=== PATIENT | female | born 1945 | race Caucasian/White ===

== ENCOUNTER 2019-10-10 08:00 | Outpatient (CLI) | payer MEDICARE, BC ==
--- NOTE | 2019-10-10 10:39 | BD ---
DEXA BONE DENSITY STUDY: Date: 10/10/19 HISTORY: Postmenopausal. FINDINGS: Lumbar Spine: BMD (g/cm2) L1 1.022 T-Score: +0.3 L2 1.048 T-Score: +0.2 L3 0.946 T-Score: -1.3 L4 0.900 T-Score: -1.5 Total 0.974 T-Score: -0.7 Left Femoral Neck: 0.723 T-Score: -1.1 Total Femur: 0.891 T-Score: -0.4 IMPRESSION: Osteopenia of the left femoral neck. Normal bone mineral density of the lumbar spine. 2. 10 year fracture risk for a major osteoporotic fracture is 14% and for a hip fracture is 5.2%. Th donna fracture probabilities are calculated for an untreated patient. POS: TPC
== END 2019-10-10 08:01 | disposition home or self-care (01) ==
LOC: BICMAMMO 08:00
PROVIDERS: ATTEND Family Medicine
DX: Z13.820 Encounter for screening for osteoporosis (principal); Z78.0 Asymptomatic menopausal state; M85.852 Other specified disorders of bone density and structure, left thigh
CPT/HCPCS: 77080

== ENCOUNTER 2020-01-06 05:17 | Outpatient (CLI) | payer MEDICARE, BC ==
[2020-01-06 10:37] LABS: INR-International Normal Ratio 1.4; PTT 37.9 SEC (22.9-36.1); Prothrombin Time 17.5 SEC (12.0-14.7)
[2020-01-06 10:44] LABS: Hemoglobin 15.2 g/dL (12.0-16.0); Mean Corpuscular HGB CONC 32.9 g/dL (32.0-36.0); Mean Corpuscular Volume 94.3 fL (78.0-98.0); Mean Platelet Volume 8.6 fL (7.4-10.4); Platelet Count 162 thou/uL (130-400); RBC Distribution Width 11.4 % (11.5-14.5); White Blood Cell (WBC) Count 9.5 thou/uL (4.8-10.8)
[2020-01-06 10:56] LABS: Anion Gap 12 mmol/L (10-20); BUN (Urea Nitrogen) 16 mg/dL (9.8-20.1); Calc. Creatinine Clearance 0 mL/min (70-130); Calcium 9.2 mg/dL (7.8-10.44); Carbon Dioxide 28 mmol/L (23-31); Chloride 104 mmol/L (98-107); Estimated GFR-MDRD 69; Glucose 102 mg/dL (83-110); Potassium 4.6 mmol/L (3.5-5.1); Sodium 139 mmol/L (136-145)
== END 2020-01-06 05:18 | disposition home or self-care (01) ==
LOC: LABBT 05:17
PROVIDERS: ATTEND Internal Medicine Cardiovascular Disease
DX: Z01.818 Encounter for other preprocedural examination (principal); I48.91 Unspecified atrial fibrillation
CPT/HCPCS: 80048; 85027; 85610; 85730; 93005; 93010

== ENCOUNTER 2020-01-09 08:44 | Observation (INO) | payer MEDICARE, BC ==
[2020-01-06 09:23] VITALS: BMI 32.4
[2020-01-09] MEDS ORDERED: Isoproterenol 0.2 MG/1 ML AMP ONE (08:59)
[2020-01-09] MEDS ORDERED: Heparin 10,000 UNITS/1 ML VIAL ONE ×2 (08:59→12:52)
[2020-01-09] MEDS ORDERED: Heparin (Artline) 1,500 ML ONE (08:59)
[2020-01-09] MEDS ORDERED: Heparin 25,000 units/D5W 500 ML ONE (09:26)
[2020-01-09] MEDS ORDERED: Lidocaine 1% (PF) 30 ML VIAL ONE (09:26)
[2020-01-09] MEDS ORDERED: Propofol 500 MG/50 ML VIAL ONE (09:34)
[2020-01-09] MEDS ORDERED: Phenylephrine HCL 10 MG/ML VIAL ONE (11:03)
[2020-01-09] MEDS ORDERED: Protamine Sulfate 50 MG/5 ML VIAL ONE (13:14)
[2020-01-09] MEDS ORDERED: Naproxen 500 MG TAB PO PRN (14:43)
[2020-01-09] MEDS ORDERED: Acetaminophen/Codeine 30-300mg Tablet PO PRN ×2 (14:45)
[2020-01-09] MEDS ORDERED: Potassium Chloride 20 MEQ TAB PO PRN (14:46)
[2020-01-09] MEDS ORDERED: Furosemide 40 MG TAB PO PRN (14:46)
[2020-01-09] MEDS ORDERED: Glycopyrrolate 0.2 MG/ML 5 ML SYRINGE ONE (14:53)
[2020-01-09] MEDS ORDERED: PHENYLEPHRINE-NS 100 MCG/ML 10 ML SYRINGE ONE (14:53)
[2020-01-09] MEDS ORDERED: PROPOFOL 200 MG/20 ML VIAL ONE (14:53)
[2020-01-09] MEDS ORDERED: Lidocaine 1% PF 5 ML VIAL ONE (14:53)
[2020-01-09] MEDS ORDERED: Rocuronium Bromide 10 MG/ML (10ML VIAL) ONE (14:53)
--- NOTE | 2020-01-09 15:29 | OP ---
DATE OF PROCEDURE: 01/09/2020 PROCEDURE PERFORMED: Electrophysiology study and radiofrequency ablation. REASON FOR PROCEDURE: Ms. Perera is a 74-year-old woman with history of paroxysmal atrial fibrillation, previously suppressed with flecainide, but now with breakthrough tachycardia episodes are noted. She is here for pulmonary venous isolation procedure. DESCRIPTION OF PROCEDURE: The patient received general anesthesia by Anesthesia specialist. Left and right femoral veins were prepped, draped, and anesthetized and cannulated under ultrasound guidance x2. On the left side, an 11-Azerbaijani sheet was used to advance the intracardiac echocardiogram probe to the right atrium, where it was used to monitor the catheter manipulation, pericardial space as well as the transseptal procedure throughout the case. Also on the left side, a Preface long sheath was used to advance a 20 pole DuoDeca catheter to the right atrium and CS position. On the right side, two 8-Azerbaijani short sheath was initially introduced through which a ThermoCool SFST catheter was used to obtain a right atrial map including His bundle and CS locations were delineated. Following findings were noted. Baseline rhythm was sinus rhythm at 995 msec, MI 168 msec, QRS 52 msec, QT 384 msec, AH 86 msec, HV 48 msec. Sinus node recovery time was msec with somewhat prolonged corrected sinus node recovery time of 778 msec. AV Wenckebach cycle length was 340 msec. LV pacing during procedure was performed with VA conduction at 440 msec. Wenckebach noted. Atrial extrastimuli testing was performed on Isuprel with atrial ERP at 500/260 msec. No dual AV node physiology is noted. No evidence of accessory pathway and concentric retrograde VA conduction was seen during catheter manipulation and easily inducible atrial tachycardia was seen, which likely originated from the right pulmonary veins, terminated with pacing maneuvers. Following this, the right-sided short sheath was exchanged to SL1 sheath, which was used to perform transseptal puncture with the help of a powered [place] needle. IV heparin was administered at this point with bolus and drip, and ACT was previously checked and adjusted to keep ACT over 350. Through the SL1 sheaths, a ThermoCool SFST catheter and a 20-pole Lasso catheter were advanced to the left atrium. 3D map of the left atrium was obtained and a standard pulmonary vein site isolation was performed. The posterior wall was also isolated with a roof and inferior line box lesions on posterior wall ablation. Close attention was paid to the esophageal temperatures to avoid excessive heating with the help of esophageal temperature probe. At the end of the case with catheter manipulation again short right atrial flutter was induced which was terminated with pacing maneuvers and was not reinducible. Isuprel was administered at this point with up to 10 mcg. Any reconnection of pulmonary veins reablated and a burst atrial pacing did not induce atrial flutter, fibrillation or atrial tachyarrhythmias. At end of the case, the catheter was pulled from the left side, heparin was stopped, and then reversed with protamine administration. The intracardiac echo probe did not indicate any change in the pericardial space. No significant effusion noted. Also, cardiac silhouette did not change throughout the procedure. The long sheaths were exchanged secondary to short sheaths and Vascade closure was performed in each vein. 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 No complications noted. Total 20 min RF@ 40 W delivered. CONCLUSION: 1. Successful isolation of all 4 pulmonary veins and posterior wall. 2. Abnormal sinus node recovery time. 3. Normal AV tanja and His-Purkinje function without evidence of accessory pathway or dual AV tanja physiology. 4. No inducible atrial arrhythmias after pulmonary venous isolation procedure is seen on and off Isuprel. PLAN: Routine post ablation care. Resume anticoagulants. Stop flecainide. Monitor for recurrent arrhythmias. Job ID: [id number] [facility]
[2020-01-09] MEDS ORDERED: Loratadine 10 MG TAB PO SCH (18:00)
[2020-01-09] MEDS: Sucralfate 1 GM TAB PO SCH (20:06)
[2020-01-09] MEDS: Apixaban 5 MG TAB PO SCH (20:06)
[2020-01-09] MEDS ORDERED: Acetaminophen 325 MG TAB PO PRN (21:21)
[2020-01-09] MEDS ORDERED: Acetaminophen 650 MG Suppository PR PRN (21:21)
[2020-01-09] MEDS ORDERED: Cepastat Lozenges 1 LOZ PO PRN (21:34)
[2020-01-09] MEDS ORDERED: Benzonatate 100 MG CAP PO PRN (21:34)
[2020-01-09 21:48] LABS: #Lymphocytes 1.2 thou/uL (1.20-3.40); #Monocytes 0.5 thou/uL (0.11-0.59); #Neutrophils 7.4 thou/uL (1.40-6.50); %Basophils 0.2 % (0.0-1.0); %Eosinophils 0.2 % (0.0-10.0); %Lymphocytes 13.5 % (21.0-51.0); %Monocytes 5.7 % (0.0-10.0); %Neutrophils 80.4 % (42.0-75.0); Hemoglobin 14.1 g/dL (12.0-16.0); Mean Corpuscular HGB CONC 34.7 g/dL (32.0-36.0); Mean Corpuscular Hemoglobin 32.5 pg (27.0-31.0); Mean Corpuscular Volume 93.5 fL (78.0-98.0); Mean Platelet Volume 8.4 fL (7.4-10.4); Platelet Count 152 thou/uL (130-400); RBC Distribution Width 11.3 % (11.5-14.5); Red Blood Cell (RBC) Count 4.35 mill/uL (4.20-5.40); White Blood Cell (WBC) Count 9.2 thou/uL (4.8-10.8)
[2020-01-09 22:15] LABS: Anion Gap 11 mmol/L (10-20); BUN (Urea Nitrogen) 10 mg/dL (9.8-20.1); Calc. Creatinine Clearance 94 mL/min (70-130); Calcium 8.4 mg/dL (7.8-10.44); Carbon Dioxide 25 mmol/L (23-31); Chloride 104 mmol/L (98-107); Estimated GFR-MDRD 78; Glucose 123 mg/dL (83-110); Magnesium 1.5 mg/dL (1.6-2.6); Potassium 4.1 mmol/L (3.5-5.1); Sodium 136 mmol/L (136-145)
--- NOTE | 2020-01-09 22:21 | CON ---
DATE OF CONSULTATION: 01/09/2020 TIME OF ASSESSMENT: 1999 CHIEF COMPLAINT: Cough. REASON FOR CONSULTATION: Medical management. HISTORY OF PRESENT ILLNESS: Ms. Perera is a 74-year-old woman, who is status post EP study and radiofrequency ablation for paroxysmal AFib, who developed breakthrough tachycardia after previously having controlled AFib with flecainide. Patient had the procedure done earlier today. She states she has had a cough since yesterday that has been productive of sputum, but she is unsure what color it is. Denies having any fevers at home. Reports having a mild postnasal drip type sensation and has been given some . Also, complains of some mild soreness in her throat since undergoing the procedure. She has been tolerating oral intake. No nausea or vomiting. No hemoptysis. Denies any shortness of breath. PAST MEDICAL HISTORY: 1. History of paroxysmal AFib. 2. Mitral valve disease with prolapse and [id number] regurgitation as well as LVEF of 60% to 65%. on echo done in March 2018. 3. Chronic anticoagulation with Xarelto. 4. Stress test done in September 2019 with no ischemia and EF of 70%. PAST SURGICAL HISTORY: 1. Bunionectomy. 2. D and C. 3. Knee surgery. 4. T and A. 5. Appendectomy. SOCIAL HISTORY: Patient denies any tobacco use, alcohol consumption, or illicit drug use. ALLERGIES: NO KNOWN DRUG ALLERGIES. CURRENT MEDICATIONS: 1. Eliquis. 2. Vitamin D3. 3. Flecainide. 4. Metoprolol succinate. 5. Naproxen. PHYSICAL EXAMINATION: GENERAL: Patient appears well developed, well nourished, is in no acute distress. VITAL SIGNS: Temperature 100.3, pulse , respirations 18, O2 saturation 96% on room air, and blood pressure 123/81. HEENT: Normocephalic and atraumatic. Pupils are equal, round, and reactive to light. No scleral icterus. Oropharynx is clear. NECK: Supple. LUNGS: Clear to auscultation bilaterally. No wheezes, rales, or rhonchi. CARDIAC: Regular rate and rhythm. ABDOMEN: Soft, nontender, and nondistended. Normoactive bowel sounds present. No guarding or rigidity. No renal angle tenderness. EXTREMITIES: No lower leg swelling or edema. Peripheral pulse is slightly weaker in the right foot, assessed by Dr. Reynoso earlier today. Patient states there is no concern. Extremities warm. NEUROLOGIC: Alert and oriented x3. No neuro deficits at the time of exam. IMPRESSION AND PLAN: Ms. Perera is a pleasant 74-year-old woman, who is status post ablation for breakthrough paroxysmal atrial fibrillation. She has been referred to us for medical management. Patient is complaining of a cough productive of sputum, also with a temperature of 100.3. We will give Tylenol for her fever and we will obtain a chest x-ray. We will also screen for flu and obtain a urinalysis. Preoperative laboratory studies done on January 06, at which time her white count was normal. Labs were all essentially unremarkable at that time. We will repeat laboratory studies now and we will check lactic acid as well as procalcitonin. Patient is hemodynamically normal. We will continue to monitor. She is full code and her surrogate decision maker is her , Leno Perera. Of note, for her cough, we will give Tessalon Perles and lozenges to help with her sore throat. Case to be discussed with attending for further recommendations. Thank you for this consultation. We will continue to follow the patient with you. Job ID: [id number]
--- NOTE | 2020-01-09 23:33 | RAD ---
Chest AP view INDICATION: Productive cough COMPARISON: None FINDINGS: Lungs:The lungs are mildly hyperexpanded with interstitial prominence suspicious for underlying COPD change. No airspace consolidation is evident. Cardiac silhouette:The cardiomediastinal silhouette appears within normal limits. Pulmonary vasculature:Normal Pleural spaces:No pleural effusion or pneumothorax is demonstrated. Upper abdomen:No abnormality seen. Osseous structures: No acute osseous abnormality. Additional findings:None. IMPRESSION: No acute cardiopulmonary abnormality.
[2020-01-10 05:47] LABS: #Eosinphils 0.2 thou/uL (0.0-0.7); #Monocytes 0.8 thou/uL (0.11-0.59); #Neutrophils 6.4 thou/uL (1.40-6.50); %Basophils 0.2 % (0.0-1.0); %Eosinophils 1.6 % (0.0-10.0); %Lymphocytes 21.2 % (21.0-51.0); %Monocytes 8.1 % (0.0-10.0); Hemoglobin 14.5 g/dL (12.0-16.0); Mean Corpuscular HGB CONC 34.1 g/dL (32.0-36.0); Mean Corpuscular Hemoglobin 32.2 pg (27.0-31.0); Mean Corpuscular Volume 94.6 fL (78.0-98.0); Mean Platelet Volume 8.4 fL (7.4-10.4); Platelet Count 154 thou/uL (130-400); RBC Distribution Width 11.4 % (11.5-14.5); White Blood Cell (WBC) Count 9.3 thou/uL (4.8-10.8)
[2020-01-10 05:48] LABS: Anion Gap 12 mmol/L (10-20); BUN (Urea Nitrogen) 9 mg/dL (9.8-20.1); Calc. Creatinine Clearance 96 mL/min (70-130); Calcium 8.8 mg/dL (7.8-10.44); Carbon Dioxide 25 mmol/L (23-31); Chloride 104 mmol/L (98-107); Estimated GFR-MDRD 79; Glucose 107 mg/dL (83-110); Potassium 3.8 mmol/L (3.5-5.1); Sodium 137 mmol/L (136-145)
[2020-01-10] MEDS: Sucralfate 1 GM TAB PO SCH ×2 (06:11)
[2020-01-10 06:39] LABS: Bilirubin Negative (Negative); Blood, Urine Negative (Negative); Clarity Clear (Clear); Glucose, Urine (Dipstick) Normal (Negative); Leukocyte 75 Leu/uL (Negative); Nitrite Negative (Negative); Protein, Urine (Dipstick) Negative (Neg-Trace); RBC/HPF 0-3 HPF (0-3); Squamous Epithelial 0-3 HPF (0-3); Urobilinogen Normal mg/dL (Less than 2)
[2020-01-10 06:42] LABS: Bacteria/HPF 1+ HPF (None Seen)
[2020-01-10 06:44] LABS: Urine Culture Reflex Yes Yes
--- NOTE | 2020-01-10 08:04 | PDOC.HOSPP ---
- Subjective Encounter Date: 01/10/20 Encounter Time: 11:00 Subjective: Patient feeling well this AM since ablation. Did have some cough and sore throat after procedure, runny nose prior. Improving with meds and sucking on [place]. - Objective Vital Signs & Weight: Vital Signs (12 hours) Temp Pulse Resp BP BP Pulse Ox 01/10/20 04:00 98 F 78 18 125/60 96 01/09/20 23:58 99.6 F 79 17 119/57 L 96 01/09/20 20:05 100.3 F H 89 18 123/81 96 Weight Weight 195 lb Result Diagrams: 01/10/20 04:46 01/10/20 04:46 Hospitalist ROS - Review of Systems Constitutional: denies: fever, chills Respiratory: reports: cough. denies: shortness of breath, sputum Cardiovascular: denies: chest pain, palpitations, orthopnea Gastrointestinal: denies: nausea, vomiting, abdominal pain - Medication Medications: Active Medications Generic Name Dose Route Start Last Admin Trade Name Freq PRN Reason Stop Dose Admin Apixaban 5 mg 01/09/20 21:00 01/09/20 20:06 Eliquis PO 5 mg BID ELBA Administration Sucralfate 1 gm 01/09/20 18:00 01/10/20 06:11 Carafate PO 01/23/20 18:01 1 gm Q6HR ELBA Administration - Exam General Appearance: NAD, awake alert ENT: moist mucosa Heart: RRR, no murmur, no gallops, no rubs Respiratory: CTAB, no wheezes, no rales, no ronchi Gastrointestinal: soft, non-tender, non-distended, normal bowel sounds Psychiatric: normal affect, normal behavior, A&O x 3 Hosp A/P (1) URI (upper respiratory infection) Code(s): J06.9 - ACUTE UPPER RESPIRATORY INFECTION, UNSPECIFIED Status: Acute (2) Paroxysmal atrial fibrillation Code(s): I48.0 - PAROXYSMAL ATRIAL FIBRILLATION Status: Chronic (3) Chronic anticoagulation Code(s): Z79.01 - PENITENTIARY (CURRENT) USE OF ANTICOAGULANTS Status: Chronic - Plan Workup negative for pneumonia, flu, or significant bacterial infection. Symptomatic care for likely viral URI. I would recommend continuing the Tessalon and Cepastat lozenges, and I have sent a Rx for these to the pharmacy Spoke with Dr. Reynoso's PA and will d/c home with meds he recommended, f/u with him in 6 weeks.
[2020-01-10] MEDS ORDERED: Famotidine/PF 20 mg/2ml Vial SLOW IVP SCH (09:00)
[2020-01-10] MEDS: Apixaban 5 MG TAB PO SCH (09:33)
--- NOTE | 2020-01-10 10:20 | PRG ---
DATE OF SERVICE: 01/10/2020 SUBJECTIVE: Ms. Perera seem to be doing well one day after her pulmonary venous isolation procedure. She had minor right groin oozing last night, but that has resolved with extra pressure. Currently, she has no further bleeding issues. No major discomforts. No obvious hematoma. She has no palpitations. No fever, chills, or cough, and vital signs are stable. OBJECTIVE DATA: VITAL SIGNS: Blood pressure is 141/64, heart rate 87, respirations 16, temperature 97.2 degrees Fahrenheit GENERAL: This is an alert and oriented woman, in no apparent distress. NECK: Supple. Jugular veins not distended. CHEST: Coarse without crackles. HEART: Sounds are regular to rate and rhythm. No murmur or gallop. ABDOMEN: Benign. Bowel sounds positive. EXTREMITIES: Lower extremities without edema, clubbing, or cyanosis. DATABASE: EKG is reviewed, revealing sinus rhythm, no sign of ST-T changes, QTc 452 milliseconds. LABORATORY DATA: White cell count 9.3, hemoglobin 14.5, platelet count is 154. Sodium 137, potassium 3.8, BUN is 9, and creatinine 0.72. ASSESSMENT AND PLAN: Ms. Perera is a pleasant 74-year-old woman with a history of paroxysmal atrial fibrillation with recurrences despite of flecainide therapy. She underwent a pulmonary venous isolation procedure yesterday and tolerated the procedure well. A total of 20 minutes of radiofrequency energy delivered, isolating all 4 pulmonary veins in the posterior wall. No arrhythmia was inducible at the end of the case. She remains in sinus rhythm throughout the procedure. I find her overall stable for discharge. She likely should go home on Carafate 1 g q.6 hours for 14 days as well as Protonix 40 mg daily for 14 days, Lasix 40 mg daily for next 10 days, and potassium could be given as prescriptions. She is encouraged to follow up in 6 weeks or earlier if symptoms dictate. Job ID: [id number]
[2020-01-10 11:54] VITALS: BP 127/60; TEMP 98.7
--- NOTE | 2020-01-11 00:48 | DIS ---
DATE OF ADMISSION: 01/09/2020 DATE OF DISCHARGE: 01/10/2020 PRIMARY CARE PHYSICIAN: Dr. Tomy Hernandez. ADMITTING PHYSICIAN: Dr. Reynoso. REASON FOR ADMISSION: Radiofrequency ablation for paroxysmal atrial fibrillation. DIAGNOSES AT DISCHARGE: 1. Paroxysmal atrial fibrillation, resolved after radiofrequency ablation. 2. Upper respiratory tract infection. 3. Chronic anticoagulation. PROCEDURES: Electrophysiology study and radiofrequency ablation. INITIAL ADMITTING PHYSICIAN: Dr. Reynoso. CONSULTATIONS: Hospital Service. SUMMARY OF HOSPITAL COURSE: This is a 74-year-old woman with a history of paroxysmal atrial fibrillation resistant to flecainide. The patient has flecainide therapy outpatient. Dr. Reynoso brought her in for radiofrequency ablation. After the ablation, the patient developed some cough and sore throat. She had had some runny nose prior to the procedure. We were consulted to manage this. We did do a chest x-ray and a flu test which came back negative. The patient was treated symptomatically with Tessalon Perles and with some Cepastat lozenges and has had improvement in her symptoms. She has had no fever, no leukocytosis or evidence of severe bacterial infection. On the day of discharge, the patient was cleared for discharge by Dr. Reynoso. He did ask us to take care of the discharge and she is being discharged home. DISCHARGE MANAGEMENT: Discharged home. ACTIVITY: As tolerated. DIET: Healthy heart diet. FOLLOWUP: Follow up with Dr. Tomy Hernandez as needed, with Dr. Reynoso in 6 weeks. DISCHARGE MEDICATIONS: 1. Tessalon Perles 100 mg 3 times a day as needed for cough, 30 capsules dispensed. 2. Furosemide 40 mg daily p.r.n. fluid retention, 10 tablets dispensed. 3. Potassium chloride 20 mEq daily whenever she takes the Lasix, 10 tablets dispensed. 4. Protonix 40 mg daily, 14 tablets dispensed. 5. Sucralfate 1 g four times a day, 56 tablets dispensed. 6. Eliquis 5 mg twice a day. 7. Vitamin D3 1000 units daily. 8. Metoprolol succinate 25 mg daily. 9. Naproxen as needed for pain. 10. The patient can discontinue her flecainide. Job ID: [id number]
== END 2020-01-10 12:58 | disposition home or self-care (01) ==
LOC: CCL 08:44 → 2SW 13:43
PROVIDERS: ADMIT Internal Medicine Cardiovascular Disease; ATTEND Internal Medicine Cardiovascular Disease
PROC: 02583ZZ Destruction of Conduction Mechanism, Percutaneous Approach (ICD-10-PCS; principal; 2020-01-09)
PROC: 02K83ZZ Map Conduction Mechanism, Percutaneous Approach (ICD-10-PCS; 2020-01-09)
PROC: 4A023FZ Measurement of Cardiac Rhythm, Percutaneous Approach (ICD-10-PCS; 2020-01-09)
PROC: 4A0234Z Measurement of Cardiac Electrical Activity, Percutaneous Approach (ICD-10-PCS; 2020-01-09)
DX: I48.0 Paroxysmal atrial fibrillation (principal); J06.9 Acute upper respiratory infection, unspecified; I34.1 Nonrheumatic mitral (valve) prolapse; I34.0 Nonrheumatic mitral (valve) insufficiency; Z79.01 Long term (current) use of anticoagulants; Z79.899 Other long term (current) drug therapy
CPT/HCPCS: 71045; 76942; 80048 ×2; 81001; 83605; 83735; 84145; 85025 ×2; 85347 ×2; 87086; 87804 ×2; 93005 ×2; 93613; 93623; 93656; 93662; C1731; C1732 ×3; C1759; C1769; G0378 ×2; 36415; 93010; J1644; J2001; J2370; J2704; J2720

== ENCOUNTER 2021-12-04 15:39 | Outpatient (CLI) | payer MEDICARE, BC ==
[2021-12-04 17:02] LABS: Bilirubin Neg (Negative); Blood, Urine 10 (Negative); Clarity Clear (Clear); Glucose, Urine (Dipstick) Normal (Negative); Ketone, Urine Negative (Negative); Leukocyte 500 (Negative); Nitrite Negative (Negative); Protein, Urine (Dipstick) Negative (Neg-Trace)
[2021-12-04 17:04] LABS: #Eosinphils 0.2 10x3/uL (0.0-0.5); #Monocytes 0.6 10x3/uL (0.0-1.1); #Neutrophils 5.8 10x3/uL (1.5-8.4); %Basophils 0.3 % (0.0-2.0); %Eosinophils 2.5 % (0.0-6.0); %Lymphocytes 23.2 % (18.0-47.0); %Neutrophils 66.7 % (40.0-75.0); Hemoglobin 14.1 g/dL (12.0-15.5); Mean Corpuscular HGB CONC 32.6 g/dL (32.0-36.0); Mean Corpuscular Hemoglobin 30.6 pg (27.0-33.0); Mean Corpuscular Volume 93.9 fl (81.6-98.3); Mean Platelet Volume 10.2 fl (7.4-10.4); Platelet Count 180 10x3/uL (150-450); RBC Distribution Width 11.9 % (11.5-14.5); Red Blood Cell (RBC) Count 4.61 10x6/uL (3.90-5.03); White Blood Cell (WBC) Count 8.7 10x3/uL (3.5-10.5)
[2021-12-04 17:23] LABS: Anion Gap 12 mmol/L (10-20); BUN (Urea Nitrogen) 15 mg/dL (9.8-20.1); Calc. Creatinine Clearance 0 mL/min (70-130); Calcium 9.2 mg/dL (7.8-10.44); Carbon Dioxide 29 mmol/L (23-31); Chloride 102 mmol/L (98-107); Glucose 105 mg/dL (83-110); Sodium 139 mmol/L (136-145)
[2021-12-04 17:26] LABS: Prothrombin Time 11.5 sec (9.5-12.1)
[2021-12-05 14:39] LABS: SARS-CoV-2 PCR by NAA Not Detected (NotDetected)
== END 2021-12-04 15:40 | disposition home or self-care (01) ==
LOC: LABBT 15:39
PROVIDERS: ATTEND Orthopaedic Surgery
DX: Z01.818 Encounter for other preprocedural examination (principal); M17.12 Unilateral primary osteoarthritis, left knee; I51.7 Cardiomegaly; Z20.822 Contact with and (suspected) exposure to COVID-19
CPT/HCPCS: 71046; 80048; 81003; 85025; 85610; 86850; 86900; 86901; 87081; U0003; U0005; 93005; 93010

== ENCOUNTER 2021-12-09 05:29 | Inpatient (IN) | payer MEDICARE, BC ==
[2021-12-04 17:02] LABS: Bilirubin Neg (Negative); Blood, Urine 10 (Negative); Clarity Clear (Clear); Glucose, Urine (Dipstick) Normal (Negative); Ketone, Urine Negative (Negative); Leukocyte 500 (Negative); Nitrite Negative (Negative); Protein, Urine (Dipstick) Negative (Neg-Trace)
[2021-12-04 17:04] LABS: #Eosinphils 0.2 10x3/uL (0.0-0.5); #Monocytes 0.6 10x3/uL (0.0-1.1); #Neutrophils 5.8 10x3/uL (1.5-8.4); %Basophils 0.3 % (0.0-2.0); %Eosinophils 2.5 % (0.0-6.0); %Lymphocytes 23.2 % (18.0-47.0); %Neutrophils 66.7 % (40.0-75.0); Hemoglobin 14.1 g/dL (12.0-15.5); Mean Corpuscular HGB CONC 32.6 g/dL (32.0-36.0); Mean Corpuscular Hemoglobin 30.6 pg (27.0-33.0); Mean Corpuscular Volume 93.9 fl (81.6-98.3); Mean Platelet Volume 10.2 fl (7.4-10.4); Platelet Count 180 10x3/uL (150-450); RBC Distribution Width 11.9 % (11.5-14.5); Red Blood Cell (RBC) Count 4.61 10x6/uL (3.90-5.03); White Blood Cell (WBC) Count 8.7 10x3/uL (3.5-10.5)
[2021-12-04 17:23] LABS: Anion Gap 12 mmol/L (10-20); BUN (Urea Nitrogen) 15 mg/dL (9.8-20.1); Calc. Creatinine Clearance 0 mL/min (70-130); Calcium 9.2 mg/dL (7.8-10.44); Carbon Dioxide 29 mmol/L (23-31); Chloride 102 mmol/L (98-107); Glucose 105 mg/dL (83-110); Sodium 139 mmol/L (136-145)
[2021-12-04 17:26] LABS: Prothrombin Time 11.5 sec (9.5-12.1)
[2021-12-05 14:39] LABS: SARS-CoV-2 PCR by NAA Not Detected (NotDetected)
[2021-12-09] MEDS ORDERED: Tranexamic Acid 1,000 MG/10 ML VIAL ONE ×2 (05:52→09:30)
[2021-12-09] MEDS ORDERED: ceFAZolin 2 GM/DEX 5% 100 ML BAG ONE (05:52)
[2021-12-09] MEDS ORDERED: Sodium Chloride 0.9% 100 ML ONE (05:52)
[2021-12-09] MEDS ORDERED: Fentanyl 100 MCG/2 ML VIAL ONE ×2 (06:05→06:41)
[2021-12-09] MEDS ORDERED: Midazolam HCl 2 mg/2 ml Vial ONE (06:41)
[2021-12-09] MEDS ORDERED: Bupivacaine PF 0.5% 30 ML VIAL ONE (06:41)
[2021-12-09] MEDS ORDERED: Ondansetron PF 4 MG/2 ML Vial ONE (06:50)
[2021-12-09] MEDS ORDERED: Dexamethasone 20 MG/5 ML VIAL ONE (06:50)
[2021-12-09] MEDS ORDERED: Esmolol 100 MG/10 ML VIAL ONE (06:50)
[2021-12-09] MEDS ORDERED: PROPOFOL 200 MG/20 ML VIAL ONE (06:50)
[2021-12-09] MEDS ORDERED: Bupivacaine HCl 0.5%/Epinephrine 1:200,000/PF 30 ml Vial ONE (06:50)
[2021-12-09] MEDS ORDERED: Vancomycin 1.5 GRAM/300 ML BAG 1.5 GM in Premix Bag 1 BAG IVPB SCH ×2 (07:00→20:00)
[2021-12-09] MEDS ORDERED: Fentanyl 100 MCG/2 ML VIAL SLOW IVP PRN ×2 (07:12→07:13)
[2021-12-09] MEDS ORDERED: Acetaminophen 325 MG TAB PO PRN (07:13)
[2021-12-09] MEDS ORDERED: traMADol HCl 50 MG TAB PO PRN ×3 (07:13→07:15)
[2021-12-09] MEDS ORDERED: HYDROcodone/Acetaminophen 10/325 mg Tablet PO PRN ×3 (07:13→07:15)
[2021-12-09] MEDS ORDERED: diphenhydrAMINE 25 MG CAP PO PRN (07:13)
[2021-12-09] MEDS ORDERED: Ondansetron PF 4 MG/2 ML Vial IVP PRN ×2 (07:13→07:15)
[2021-12-09] MEDS ORDERED: Promethazine HCl 25 MG/ML VIAL IM PRN ×3 (07:13→08:25)
[2021-12-09] MEDS ORDERED: Zolpidem Tartrate 5 MG TAB PO PRN ×2 (07:13→07:15)
[2021-12-09] MEDS ORDERED: Tranexamic Acid 1,000 MG in Sodium Chloride 0.9% 100 ML IVPB SCH (07:15)
[2021-12-09] MEDS ORDERED: Ropivacaine 0.2% 550 ML 550 ML NERVE BLCK SCH (07:15)
[2021-12-09] MEDS ORDERED: methylPREDNISolone Acetate 40 mg/ml Vial ONE (07:16)
[2021-12-09] MEDS ORDERED: Aspirin 81 mg Enteric Coated Tablet PO SCH (07:30)
[2021-12-09] MEDS ORDERED: Promethazine HCl 25 MG/ML VIAL IVPB PRN (08:25)
[2021-12-09] MEDS ORDERED: Ondansetron HCl/PF 4 MG/2 ML Vial IVP PRN (08:25)
[2021-12-09] MEDS ORDERED: Promethazine HCl 25 MG/ML VIAL ONE (10:10)
[2021-12-09] MEDS ORDERED: ceFAZolin Sodium/D5W 2 GM in Premix Bag 1 BAG IVPB SCH (14:00)
[2021-12-09] MEDS ORDERED: Ketorolac Tromethamine 30 MG/ML VIAL IVP SCH (14:00)
[2021-12-09 18:58] VITALS: BMI 33.3
[2021-12-09] MEDS: Aspirin 81 mg Enteric Coated Tablet PO SCH (22:02)
[2021-12-09] MEDS: Sodium Chloride 0.9% 1,000 ML IV SCH (22:02)
[2021-12-09] MEDS: Ketorolac Tromethamine 30 MG/ML VIAL IVP SCH (22:03)
[2021-12-09] MEDS: Famotidine 20 MG TAB PO SCH (22:04)
[2021-12-10] MEDS: Sodium Chloride 0.9% 1,000 ML IV SCH ×2 (04:14→15:03)
[2021-12-10] MEDS: Ketorolac Tromethamine 30 MG/ML VIAL IVP SCH ×2 (04:23→11:24)
[2021-12-10 04:43] LABS: Hemoglobin 12.5 g/dL (12.0-16.0); Mean Corpuscular HGB CONC 34.5 g/dL (32.0-36.0); Mean Corpuscular Hemoglobin 32.5 pg (27.0-31.0); Mean Corpuscular Volume 94.1 fL (78.0-98.0); Mean Platelet Volume 7.9 fL (7.4-10.4); Platelet Count 153 thou/uL (130-400); RBC Distribution Width 10.9 % (11.5-14.5); Red Blood Cell (RBC) Count 3.84 mill/uL (4.20-5.40); White Blood Cell (WBC) Count 13.5 thou/uL (4.8-10.8)
[2021-12-10 04:44] LABS: #Lymphocytes 1.3 thou/uL (1.20-3.40); #Neutrophils 10.8 thou/uL (1.40-6.50); %Basophils 0.1 % (0.0-1.0); %Eosinophils 0.1 % (0.0-10.0); %Lymphocytes 9.6 % (21.0-51.0); %Monocytes 7.8 % (0.0-10.0); %Neutrophils 82.4 % (42.0-75.0); Hemoglobin 12.5 g/dL (12.0-16.0); Mean Corpuscular HGB CONC 35.4 g/dL (32.0-36.0); Mean Corpuscular Hemoglobin 33.3 pg (27.0-31.0); Mean Platelet Volume 7.8 fL (7.4-10.4); Platelet Count 143 thou/uL (130-400); RBC Distribution Width 10.9 % (11.5-14.5); Red Blood Cell (RBC) Count 3.76 mill/uL (4.20-5.40); White Blood Cell (WBC) Count 13.1 thou/uL (4.8-10.8)
[2021-12-10 05:15] LABS: Anion Gap 12 mmol/L (10-20); BUN (Urea Nitrogen) 10 mg/dL (9.8-20.1); Calc. Creatinine Clearance 92 mL/min (70-130); Carbon Dioxide 25 mmol/L (23-31); Cardiac Risk 2.9 (Less than 4.5); Chloride 106 mmol/L (98-107); Cholesterol 159 mg/dl (< 200 Desired); Glucose 133 mg/dL (83-110); HDL Cholesterol 54 mg/dL (>60 Neg Risk); LDL Cholesterol, Calculated 91 mg/dL; Sodium 139 mmol/L (136-145); Triglycerides 68 mg/dL (Less than 150)
[2021-12-10] MEDS ORDERED: Ferrous Gluconate 324 MG TAB PO SCH (08:00)
[2021-12-10] MEDS: Aspirin 81 mg Enteric Coated Tablet PO SCH ×2 (08:52→08:57)
[2021-12-10] MEDS: Cholecalciferol 1,000 UNITS (25 MCG) TAB PO SCH ×2 (08:53→08:57)
[2021-12-10] MEDS: HYDROcodone/Acetaminophen 10/325 mg Tablet PO PRN ×2 (08:53→14:59)
[2021-12-10] MEDS: Famotidine 20 MG TAB PO SCH (08:53)
[2021-12-10] MEDS ORDERED: Senokot S 8.6-50 MG TAB PO SCH (09:00)
[2021-12-10] MEDS ORDERED: FLU VACC QS2021-22(65YR UP)/PF 240 MCG/0.7 ML SYRINGE IM ONE (09:00)
[2021-12-10] MEDS ORDERED: Multivitamin W/ Minerals 1 TAB PO SCH (09:00)
[2021-12-10 12:20] VITALS: BP 112/70; TEMP 98.1
== END 2021-12-10 15:17 | disposition home health service (06) | DRG 470 ==
LOC: SDC 05:29 → SJJU 07:13
PROVIDERS: ADMIT Orthopaedic Surgery; ATTEND Orthopaedic Surgery
PROC: 0SRD0J9 Replacement of Left Knee Joint with Synthetic Substitute, Cemented, Open Approach (ICD-10-PCS; principal; 2021-12-09)
PROC: 3E0U33Z Introduction of Anti-inflammatory into Joints, Percutaneous Approach (ICD-10-PCS; 2021-12-09)
DX: M17.12 Unilateral primary osteoarthritis, left knee (principal); Z20.822 Contact with and (suspected) exposure to COVID-19; I48.0 Paroxysmal atrial fibrillation; E78.5 Hyperlipidemia, unspecified; Z96.1 Presence of intraocular lens; E66.9 Obesity, unspecified; Z79.82 Long term (current) use of aspirin; Z90.89 Acquired absence of other organs; Z90.49 Acquired absence of other specified parts of digestive tract; Z82.49 Family history of ischemic heart disease and other diseases of the circulatory system; Z82.3 Family history of stroke; Z98.41 Cataract extraction status, right eye; Z98.42 Cataract extraction status, left eye; Z68.33 Body mass index [BMI] 33.0-33.9, adult
CPT/HCPCS: 36415; 80048; 80061; 81003; 85025; 85027; 85610; 86850; 86900; 86901; 87081; A4306; C1713; C1776; J1100; J1885; J2250; J2405; J2550; J2704; J2795; J2920; J3010; J3370; J3490; S0020; U0003; U0005

== ENCOUNTER 2022-03-05 09:44 | Outpatient (CLI) | payer MEDICARE, BC | END 2022-03-05 09:45 | disposition home or self-care (01) | LOC: BICMAMMO 09:44 | PROVIDERS: ATTEND Family Medicine | DX: M85.851 Other specified disorders of bone density and structure, right thigh (principal); M85.852 Other specified disorders of bone density and structure, left thigh | CPT/HCPCS: 77080 ==

== ENCOUNTER 2024-07-18 05:36 | Observation (INO) | payer MEDICARE, BC ==
[2024-07-13 09:41] VITALS: BMI 32.4
[2024-07-18] MEDS ORDERED: Sodium Chloride 0.9% 100 ML ONE ×2 (06:08→07:02)
[2024-07-18] MEDS ORDERED: Tranexamic Acid 1,000 MG/10 ML VIAL ONE ×2 (06:08→09:20)
[2024-07-18] MEDS ORDERED: Vancomycin (BATCH) 1.5 GM/300 ML BAG ONE (06:08)
[2024-07-18] MEDS ORDERED: Midazolam HCl 2 mg/2 ml Vial ONE (06:24)
[2024-07-18] MEDS ORDERED: fentaNYL PF 100 MCG/2 ML SYRINGE ONE ×2 (06:24→08:20)
[2024-07-18] MEDS ORDERED: Bupivacaine PF 0.5% 30 ML VIAL ONE ×2 (06:24→08:00)
[2024-07-18] MEDS ORDERED: PROPOFOL 20 ML ONE (06:24)
[2024-07-18] MEDS ORDERED: Ondansetron PF 4 MG/2 ML Vial ONE (06:25)
[2024-07-18] MEDS ORDERED: Lidocaine 1% PF 5 ML VIAL ONE (06:25)
[2024-07-18] MEDS ORDERED: Dexamethasone 20 MG/5 ML VIAL ONE (06:25)
[2024-07-18] MEDS ORDERED: Lidocaine 2% 6 ML (Jelly) SYR ONE (06:26)
[2024-07-18] MEDS ORDERED: HYDROmorphone 2 MG/ML VIAL SLOW IVP PRN (06:43)
[2024-07-18] MEDS ORDERED: Promethazine HCl 25 MG/ML VIAL IM PRN ×3 (06:43→09:01)
[2024-07-18] MEDS ORDERED: Ondansetron HCl/PF 4 MG/2 ML Vial IVP PRN (06:43)
[2024-07-18] MEDS ORDERED: Bupivacaine HCl 0.5%/Epinephrine 1:200,000/PF 30 ml Vial ONE (06:55)
[2024-07-18] MEDS ORDERED: CEFAZOLIN 2 GM VIAL ONE (07:02)
[2024-07-18] MEDS ORDERED: ePHEDrine Sulfate 50 MG/10 ML VIAL ONE (07:38)
[2024-07-18] MEDS ORDERED: Lidocaine 1% (PF) 30 ML VIAL ONE (08:00)
[2024-07-18] MEDS ORDERED: HYDROcodone/Acetaminophen 10/325 mg Tablet PO PRN ×2 (08:45)
[2024-07-18] MEDS ORDERED: Ropivacaine 0.2% 550 ML 550 ML NERVE BLCK SCH (08:45)
[2024-07-18] MEDS ORDERED: Ondansetron PF 4 MG/2 ML Vial IVP PRN ×2 (08:45→09:01)
[2024-07-18] MEDS ORDERED: Zolpidem Tartrate 5 MG TAB PO PRN ×2 (08:45→09:01)
[2024-07-18] MEDS ORDERED: traMADol HCl 50 MG TAB PO PRN ×2 (08:45)
[2024-07-18] MEDS ORDERED: fentaNYL 50 mcg/mL 1 mL Vial SLOW IVP PRN (08:46)
[2024-07-18] MEDS ORDERED: diphenhydrAMINE 25 MG CAP PO PRN (09:01)
[2024-07-18] MEDS ORDERED: HYDROmorphone 0.5 MG/0.5 ML SYRINGE ONE (11:43)
[2024-07-18] MEDS: Ketorolac Tromethamine 30 MG (1 mL) VIAL IVP SCH (13:10)
[2024-07-18] MEDS: Sodium Chloride 0.9% 1,000 ML IV SCH (13:11)
[2024-07-18] MEDS: CEFAZOLIN 2 GM in Sodium Chloride 0.9% 100 ML IVPB SCH (15:24)
[2024-07-18] MEDS: Aspirin 81 mg Enteric Coated Tablet PO SCH (21:35)
[2024-07-18] MEDS: Vancomycin (BATCH) 1.5 GM in Premix 1 BAG IVPB SCH (21:35)
[2024-07-19 05:44] LABS: Hematocrit 33.5 % (36.0-47.0); Hemoglobin 11.3 g/dL (12.0-16.0); Mean Corpuscular HGB CONC 33.7 g/dL (32.0-36.0); Mean Corpuscular Hemoglobin 31.6 pg (27.0-31.0); Mean Corpuscular Volume 93.6 fL (78.0-98.0); Mean Platelet Volume 10.5 fL (7.4-10.4); Platelet Count 133 10x3/uL (130-400); RBC Distribution Width 12.7 % (11.5-14.5); Red Blood Cell (RBC) Count 3.58 mill/uL (4.20-5.40)
[2024-07-19] MEDS: Multivitamin W/ Minerals 1 TAB PO SCH (08:35)
[2024-07-19] MEDS: Senokot S 8.6-50 MG TAB PO SCH (08:35)
[2024-07-19] MEDS: Ferrous Gluconate 324 MG TAB PO SCH (08:35)
[2024-07-19] MEDS: Cholecalciferol 1,000 UNITS (25 MCG) TAB PO SCH (08:35)
[2024-07-19] MEDS: Acetaminophen 325 MG TAB PO PRN (08:39)
[2024-07-19 11:57] VITALS: BP 141/74; TEMP 98.2
== END 2024-07-19 12:02 | disposition home or self-care (01) ==
LOC: SDC 05:36 → SURG B 12:52
PROVIDERS: ADMIT Orthopaedic Surgery; ATTEND Orthopaedic Surgery
PROC: 0SRC0JZ Replacement of Right Knee Joint with Synthetic Substitute, Open Approach (ICD-10-PCS; principal; 2024-07-18)
PROC: 3E0T3BZ Introduction of Anesthetic Agent into Peripheral Nerves and Plexi, Percutaneous Approach (ICD-10-PCS; 2024-07-18)
DX: M17.11 Unilateral primary osteoarthritis, right knee (principal); I48.92 Unspecified atrial flutter; E78.5 Hyperlipidemia, unspecified; M54.50 Low back pain, unspecified; I35.0 Nonrheumatic aortic (valve) stenosis; I34.1 Nonrheumatic mitral (valve) prolapse; Z90.49 Acquired absence of other specified parts of digestive tract; Z98.890 Other specified postprocedural states
CPT/HCPCS: 0055T; 27447; 64447; 36415; 85027; A4306; C1713; C1776; C1889; J0665; J1100; J1170; J1885; J2001; J2250; J2405; J2704; J2795; J3370; J7030

== ENCOUNTER 2025-07-18 09:33 | Outpatient (CLI) | payer MEDICARE, BC | END 2025-07-18 09:34 | disposition home or self-care (01) | LOC: BICMAMMO 09:33 | PROVIDERS: ATTEND Family Medicine | DX: Z78.0 Asymptomatic menopausal state (principal); E28.39 Other primary ovarian failure; M85.851 Other specified disorders of bone density and structure, right thigh; M85.852 Other specified disorders of bone density and structure, left thigh | CPT/HCPCS: 77080 ==